=== PATIENT | male | born 1985 | race Caucasian/White ===

== ENCOUNTER → 2016-10-13 | Outpatient (CLI) | payer OTHER ==
[2016-10-13 13:56] LABS: METHOD OF COLLECTION MASTURBATION; SEMEN COLOR YELLOW-GRAY (GRY/GRYWHTE); SEMEN TIME OF COLLECTION 1050; TYPE OF SPECIMEN CONTAINER STERILE CUP
[2016-10-13 13:57] LABS: DAYS OF ABSTINENCE OVER 3; SEMEN VOLUME 5.5 ML (>1.5)
[2016-10-13 13:58] LABS: SPERM VIABILITY STAIN NOT PERFORMED % (>58%)
== END | disposition home or self-care (01) ==
LOC: C.LAB 11:35
PROVIDERS: ATTEND Urology
DX: N46.9 Male infertility, unspecified (principal)

== ENCOUNTER 2017-01-10 19:26 | Emergency (ER) | payer OTHER ==
[~2017-01-10] VITALS: Ht 177.8 cm; Wt 103.5 kg
[2017-01-10 19:29] VITALS: TEMP 36.6; Ht 177.8 cm; Wt 103.5 kg
[2017-01-10] MEDS ORDERED: PROPARACAINE HCL 0.5% OP SOLN 15 ML BTL OP STA (19:49)
[2017-01-10] MEDS ORDERED: CIPROFLOXACIN HCL 0.3% OP SOLN 2.5 ML BTL OP ONE (21:30)
--- NOTE | 2017-01-10 21:30 | EMERGENCY ROOM VISIT NOTE ---
ED Visit Note First contact with patient: 19:45 CHIEF COMPLAINT: Eye pain HISTORY OF PRESENT ILLNESS: This 31-year-old male patient presents to the emergency department ambulatory complaining of pain in the right eye. 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 He does have a history of foreign bodies in the eye. There has been a constant moderate pain and irritation, redness and tearing in the eye. There is a mild blurring of vision at times and light bothers the eye. The vision has not been decreased over all. The patient does not wear contacts. The patient rates the pain as sharp and 3/10. Tetanus shot is not up to date. REVIEW OF SYSTEMS: A 6 system review of systems was completed with positives and pertinent negatives listed in the HPI. ALLERGIES: No known drug allergies MEDICATIONS: No chronic medications PMH: No significant past medical history. SOCIAL HISTORY: The patient lives locally with his . Nonsmoker, admits to occasional alcohol use. PHYSICAL EXAM: Vital Signs: Reviewed Nurse's notes, vital signs stable. Visual acuity 20/15 bilaterally with correction. GENERAL: This is a 31-year-old male, in no acute distress, but who is uncomfortable from the eye problem. Well- developed well-nourished. EYES: The pupils are equal round and reactive to light and accommodation. EOMs are full and without tenderness. There is discharge of clear tears from the right eye which is mildly injected. Slit- lamp examination shows a small foreign body at approximately 8:00 over the iris. Funduscopic exam reveals no hemorrhages, papilledema, or other abnormalities. EMERGENCY DEPARTMENT COURSE: I examined the patient. Alcaine 2 drops were placed in the patient's right eye. A slit lamp exam was performed as above. Initially, I used a moistened cotton tip applicator to attempt to remove the foreign body without success. A tuberculin needle was then used and I was able to remove a portion of the foreign body, but there is a portion which appears to be embedded slightly deeper within the cornea. I was not comfortable with any further times to remove the foreign body and the patient will follow-up with an manager intelligence tomorrow for definitive care. Ciloxan two drops was placed in the patient's right eye. The patient was discharged home in good condition. DIAGNOSIS: Corneal foreign body of the right eye Vital Signs Date Time Temp Pulse Resp B/P Pulse Ox O2 Delivery O2 Flow Rate FiO2 01/10/17 21:40 86 18 143/76 98 Room Air 01/10/17 19:29 36.6 88 20 145/75 97 Room Air Medications Administered Medications (Trade) Dose Ordered Sig/Maritza Route Start Time Stop Time Status Last Admin Dose Admin Proparacaine HCl (Alcaine 0.5% Oph Soln) 2 drops NOW STAT OP 01/10/17 19:49 01/10/17 19:50 DC 01/10/17 19:55 2 DROPS Ciprofloxacin HCl (Ciprofloxacin 0.3% Op Soln) 2 drops NOW ONCE OP 01/10/17 21:30 01/10/17 21:31 DC 01/10/17 21:30 2 DROPS Departure Information Impression Primary Impression: Corneal foreign body Dispostion Home / Self-Care Condition GOOD Referrals Navid Roldan M.D. (PCP) Solomon Renner M.D. Patient Instructions [facility] Additional Instructions You have been prescribed Ciloxan eye drops. This is an antibiotic which will help to prevent an infection from developing in your affected eye. You should use 2 drops in the affected eye every 2 hours while awake for the first 2 days, then every 4 hours for the remaining 5 days. This is a total of a 7-day course for these antibiotic eye drops. For pain control, you can use the following [id number] medicines (if >12 yo): - Regular strength (325mg/tab) Tylenol (acetaminophen) 2 tabs every 4-6 hours as needed. Do not exceed 12 tablets in a 24 hour period. Avoid taking more than 4 grams (4000 mg) of Tylenol per day. This includes any other sources of acetaminophen you may take on a regular basis. - Regular strength (200 mg/tab) Advil (ibuprofen) 1-2 tabs every 4-6 hours as needed. Do not exceed a dose of 3200 mg per day. Follow-up with ophthalmology tomorrow for removal of the rest of the foreign body. Problem Qualifiers Primary Impression: Corneal foreign body Encounter type: initial encounter Laterality: right Qualified Codes: T15.01XA - Foreign body in cornea, right eye, initial encounter
[2017-01-10 21:40] VITALS: BP 143/76; PULSE 86; O2SAT 98
== END 2017-01-10 21:44 | disposition home or self-care (01) ==
LOC: C.EDB 19:27 → C.EDD 21:44
DX: T15.01XA Foreign body in cornea, right eye, initial encounter (principal); X58.XXXA Exposure to other specified factors, initial encounter; Y93.89 Activity, other specified